=== PATIENT | male | born 1975 | race Caucasian/White ===

== ENCOUNTER 2024-01-22 08:29 | Emergency (ER) | payer BC, SELFPAY ==
[2024-01-22] VITALS (25 sets, daily range): BP systolic 114–140; BP diastolic 59–92; PULSE 65–91; RESP 16–18; TEMP 36.8; O2SAT 92–97; BMI 32.5
--- NOTE | 2024-01-22 09:02 | CRLHL7_ITS ---
For Patients: As a result of the Century Cures Act, medical imaging exams and procedure reports are released immediately into your electronic medical record. You may view this report before your referring provider. If you have questions, please contact your health care provider. Indication: Chest pain. Technique: One view(s) of the chest. Comparison: 07/31/2022. Findings: Normal cardiomediastinal silhouette and pulmonary vasculature. Lungs are well inflated and clear. No focal consolidation, pleural effusion or pneumothorax. No acute osseous abnormality. Impression: No acute cardiopulmonary abnormality identified. Dictated by Josy Loza MD @ 01/22/2024 9:28:58 AM (Electronically Signed)
[2024-01-22 09:05] LABS: Troponin, Point-of-Care* 0.01 ng/ml (0.01-0.04)
--- NOTE | 2024-01-22 09:06 | ED.GENADULT ---
HPI - General Adult General Chief complaint: Chest Pain Stated complaint: Chest pain/hypertension/cardiac history Time Seen by Provider: 01/22/24 08:38 History of Present Illness HPI narrative: Patient is a pleasant 48 year white male smoker who has had coronary artery disease, he has had 4 stents all at the same angiographic time in 2020. He subsequently had some type of chest pain issue and had an ME prior to his stents and what sounds like non STEMI after his stent. 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 He was going to work today and felt some left-sided finger tip point tenderness on his left chest wall. He came to the hospital. He did take a nitro and his symptoms resolved but he thinks a resolved almost irrespective of his nitroglycerin. He had no diaphoresis shortness of breath or nausea or vomiting. No recent illness, nose leg swelling or edema. No bleeding or clotting history. The patient has been taking baby aspirin and Plavix. Related Data Home Medications ?Medication ?Instructions ?Recorded ?Confirmed aspirin 81 mg tablet,delayed 81 mg PO DAILY 01/22/24 01/22/24 release (Adult Low Dose Aspirin) clopidogrel 75 mg tablet 75 mg PO DAILY 01/22/24 01/22/24 isosorbide mononitrate 30 mg 15 mg PO DAILY 01/22/24 01/22/24 tablet,extended release 24 hr lisinopril 5 mg tablet 5 mg PO DAILY 01/22/24 01/22/24 metoprolol succinate 25 mg 37.5 mg PO DAILY 01/22/24 01/22/24 tablet,extended release 24 hr nitroglycerin 0.4 mg sublingual mg sublingual 01/22/24 tablet rosuvastatin 40 mg tablet 40 mg PO DAILY 01/22/24 01/22/24 Allergies Allergy/AdvReac Type Severity Reaction Status Date / Time No Known Drug Allergies Allergy Verified 01/22/24 08:43 Review of Systems Status of ROS: Reports: 6 or more systems reviewed and unremarkable except as noted in History and below [facility] Social History Smoking Status: Current every day smoker What tobacco products do you use: cigarettes Smoking packs per day: 0.5 Smoking cigarettes per day: 10.0 Do you use any of these nicotine containing products: None Second hand tobacco smoke exposure: No How often do you have a drink containing alcohol: never AUDIT-C Alcohol total score: 0 Non-prescribed substance use: denies use service: No Exam Narrative: Exam Narrative: Objective: Patient's blood pressure is initially 127/92 retested 140/59 he is afebrile O2 sat 97% on room air In general is no apparent distress, he is asymptomatic at present HEENT is unremarkable neck is supple on nodes chest clear to auscultation Heart rhythm regular without murmur Abdomen benign soft nontender no masses no peritonitis Extremities are no edema neurologic nonfocal Skin periphery is warm and dry Const: Vital Signs, click to edit/add: Vital Signs - 24 hr 01/22/24 08:40 01/22/24 08:43 01/22/24 08:44 Temperature 98.2 F Pulse Rate 89 90 Pulse Rate [Pulse Oximeter] 90 Respiratory Rate 18 Blood Pressure 127/92 H Blood Pressure [Le ft Upper Arm] 127/92 H Pulse Oximetry 96 96 96 Oxygen Delivery Me thod Room Air 01/22/24 08:45 01/22/24 08:46 01/22/24 08:47 Temperature Pulse Rate 90 91 89 Pulse Rate [Pulse Oximeter] Respiratory Rate 16 Blood Pressure 140/59 H Blood Pressure [Le ft Upper Arm] Pulse Oximetry 96 97 97 Oxygen Delivery Me thod 01/22/24 09:00 01/22/24 09:01 01/22/24 09:02 Temperature Pulse Rate 91 89 89 Pulse Rate [Pulse Oximeter] Respiratory Rate 16 Blood Pressure 134/88 Blood Pressure [Le ft Upper Arm] Pulse Oximetry 97 96 95 Oxygen Delivery Me thod 01/22/24 09:13 01/22/24 09:15 01/22/24 09:30 Temperature Pulse Rate 86 86 Pulse Rate [Pulse Oximeter] Respiratory Rate Blood Pressure Blood Pressure [Le ft Upper Arm] Pulse Oximetry 95 95 93 Oxygen Delivery Me thod 01/22/24 09:31 01/22/24 09:45 01/22/24 10:00 Temperature Pulse Rate 87 91 75 Pulse Rate [Pulse Oximeter] Respiratory Rate Blood Pressure 118/79 Blood Pressure [Le ft Upper Arm] Pulse Oximetry 94 92 94 Oxygen Delivery Me thod 01/22/24 10:01 01/22/24 10:02 01/22/24 10:15 Temperature Pulse Rate 72 75 76 Pulse Rate [Pulse Oximeter] Respiratory Rate 16 Blood Pressure 114/80 Blood Pressure [Le ft Upper Arm] Pulse Oximetry 94 94 95 Oxygen Delivery Me thod 01/22/24 10:30 01/22/24 10:31 01/22/24 10:45 Temperature Pulse Rate 76 69 65 Pulse Rate [Pulse Oximeter] Respiratory Rate 16 Blood Pressure 115/80 Blood Pressure [Le ft Upper Arm] Pulse Oximetry 95 95 94 Oxygen Delivery Me thod 01/22/24 11:00 01/22/24 11:01 01/22/24 11:02 Temperature Pulse Rate 78 79 74 Pulse Rate [Pulse Oximeter] Respiratory Rate 16 Blood Pressure 125/62 Blood Pressure [Le ft Upper Arm] Pulse Oximetry 95 95 97 Oxygen Delivery Me thod 01/22/24 11:15 Temperature Pulse Rate 74 Pulse Rate [Pulse Oximeter] Respiratory Rate Blood Pressure Blood Pressure [Le ft Upper Arm] Pulse Oximetry 97 Oxygen Delivery Me thod Course Vital Signs Vital signs: Initial Vital Signs Temperature 98.2 F 01/22/24 08:40 Temperature Source Temporal Artery Scan 01/22/24 08:40 Pulse Rate 90 01/22/24 08:40 Respiratory Rate 18 01/22/24 08:40 Blood Pressure 127/92 H 01/22/24 08:40 Blood Pressure Mean 103 01/22/24 08:40 Blood Pressure Position Supine 01/22/24 08:40 Pulse Oximetry 96 01/22/24 08:40 Oxygen Delivery Method Room Air 01/22/24 08:40 Vital Signs Temperature 98.2 F 01/22/24 08:40 Pulse Rate 90 01/22/24 08:40 Respiratory Rate 18 01/22/24 08:40 Blood Pressure 127/92 H 01/22/24 08:40 Pulse Oximetry 96 01/22/24 08:40 Oxygen Delivery Method Room Air 01/22/24 08:40 Temperature 98.2 F 01/22/24 08:40 Pulse Rate 74 01/22/24 11:15 Respiratory Rate 16 01/22/24 11:01 Blood Pressure 125/62 01/22/24 11:01 Pulse Oximetry 97 01/22/24 11:15 Oxygen Delivery Method Room Air 01/22/24 08:40 Medications Administered Medications: Discontinued Medications Generic Name Dose Route Start Last Admin Trade Name Fadia PRN Reason Stop Dose Admin Aspirin 324 mg 01/22/24 09:02 01/22/24 09:08 Aspirin 81 Mg Tab.Chew PO 01/22/24 09:03 324 mg ONCE ONE Administration Sodium Chloride 500 mls @ 500 mls/hr 01/22/24 09:02 01/22/24 10:15 0.9 % Sodium Chloride 500 Ml IV 01/22/24 10:01 Infused .Q1H ONE Infusion Medical Decision Making [facility] Narrative Medical decision making narrative: [age] year white male with history of coronary disease status post 4 stents, with point tenderness over his left chest wall, he does have some tenderness to palpation in that area when I squeeze his left upper chest he does feel some discomfort consistent with what he has been feeling. At this point however she will be given aspirin, given his cardiac history will rule out acute coronary syndrome and will do serial EKGs serial troponins, will check lab studies and disposition pending findings. Will get a chest x-ray as well. Patient will be placed on EKG gambling monitor, and oximetry. Will give a small dose IV fluid. Disposition pending his clinical status and sequential test. Addendum 11:41 a.m.: The patient has a 2nd troponin that is negative, his 2nd EKG also looks completely normal. He has not had any symptoms. I think he should engage in light activity, stop smoking, sees regular doctor within the next day or 2 to determine if additional workup would be appropriate. He was comfortable with that and will follow up as directed. I do not have strong suspicion this is coronary artery disease given its finger tip area and tenderness to the left chest, so I think follow-up with primary care as appropriate. Lab Data Labs: Lab Results 01/22/24 01/22/24 01/22/24 Range/Units 09:02 09:07 11:00 WBC 15.29 H (4.50-11.00) K/uL RBC 5.22 (4.30-5.90) m/uL Hgb 15.8 (13.5-17.5) gm/dL Hct 47.7 (37.0-53.0) % MCV 91 (80-100) fL MCH 30 (26-34) pg MCHC 33 (32-36) gm/dL RDW Coeff of Aldo 12.9 (11.5-15.5) % Plt Count 224 (140-440) K/uL Neut % (Auto) 79.1 H (42.0-72.0) % Lymph % (Auto) 12.8 L (20-44) % [place] % (Auto) 5.6 (0.0-11.0) % Eos % (Auto) 1.2 (0.0-7.0) % Baso % (Auto) 0.3 (0.0-3.0) % Neut # (Auto) 12.10 H (1.7-7.0) K/uL Lymph # (Auto) 2.00 (0.90-2.90) K/uL [place] # (Auto) 0.90 (0.00-0.90) K/UL Eos # (Auto) 0.20 (0.00-0.50) K/uL Baso # (Auto) 0.00 (0.00-0.30) K/uL Abs Immat Gran (auto) 0.20 (0.00-0.30) K/uL Imm/Tot Granulo (auto) 1.0 % INR 0.93 (0.91-1.10) APTT 29 (23-33) Seconds Sodium 137 (135-149) mmol/L Potassium 4.4 (3.6-5.1) mmol/L Chloride 107 (96-114) mmol/L Carbon Dioxide 20 (20-32) mmol/L Anion Gap 10 (7-15) mEq/L BUN 17 (5-24) mg/dL Creatinine 0.9 (0.5-1.5) mg/dL Estimated Creat Clear 110.17 Estimated GFR 105 ml/min Glucose 162 H (60-115) mg/dL Calcium 8.7 (8.4-10.6) mg/dL Total Bilirubin 0.6 (0.1-1.5) mg/dL Direct Bilirubin 0.4 (0.0-0.5) mg/dL AST 23 (12-35) U/L ALT 31 (4-50) U/L Alkaline Phosphatase 80 (40-150) U/L C-Reactive Protein < 0.5 L (0.5-1.0) mg/dL NT-Pro-B Natriuret Pep 47 pg/mL Total Protein 7.3 (6.0-8.3) g/dL Albumin 4.7 (3.3-5.0) g/dL POC Troponin I 0.01 0.00 L (0.01-0.04) ng/ml Discharge Plan Discharge Clinical Impression: Chest pain, Coronary artery disease Patient Disposition: Home w/ Parent or Adult Condition: Improved Instructions: Chest Pain (DC) Additional Instructions: Recommend recheck with regular doctor in the next 2-3 days, continue present home medication, light activity recommended, return to ED as needed, Activity Level: Light activity Discharge Diet: Regular Prescriptions: No Action isosorbide mononitrate 30 mg tablet extended release 24 hr 15 mg PO DAILY clopidogrel 75 mg tablet 75 mg PO DAILY nitroglycerin 0.4 mg tablet, sublingual sublingual lisinopril 5 mg tablet 5 mg PO DAILY metoprolol succinate 25 mg tablet extended release 24 hr 37.5 mg PO DAILY rosuvastatin 40 mg tablet 40 mg PO DAILY aspirin [Adult Low Dose Aspirin] 81 mg tablet,delayed release (DR/EC) 81 mg PO DAILY Follow Up/Referrals: Provider,Not a Local [Primary Care Provider] - Stand Alone Forms: [id number] Info Instructions
[2024-01-22] MEDS: ASPIRIN 81 MG TAB.CHEW 324 MG PO (09:08)
[2024-01-22] MEDS: 0.9 % SODIUM CHLORIDE 500 ML 500 ML IV (09:13)
[2024-01-22 09:20] LABS: Basophils Percent Auto 0.3 % (0.0-3.0); Eosinophils Percent Auto 1.2 % (0.0-7.0); Hematocrit 47.7 % (37.0-53.0); Hemoglobin* 15.8 gm/dL (13.5-17.5); Lymphocytes Percent Auto 12.8 % (20-44); Mean Corpuscular HGB Conc 33 gm/dL (32-36); Mean Corpuscular Hemoglobin 30 pg (26-34); Mean Corpuscular Volume 91 fL (80-100); Monocytes Percent Auto 5.6 % (0.0-11.0); Neutrophils Percent Auto 79.1 % (42.0-72.0); Platelet Count* 224 K/uL (140-440); RDW Coefficient of Variation % 12.9 % (11.5-15.5); Red Blood Count 5.22 m/uL (4.30-5.90); White Blood Count* 15.29 K/uL (4.50-11.00)
[2024-01-22 09:23] LABS: Albumin* 4.7 g/dL (3.3-5.0); Chloride* 107 mmol/L (96-114)
[2024-01-22 09:24] LABS: Potassium* 4.4 mmol/L (3.6-5.1); Sodium* 137 mmol/L (135-149)
[2024-01-22 09:25] LABS: INR 0.93 (0.91-1.10)
[2024-01-22 09:26] LABS: Creatinine* 0.9 mg/dL (0.5-1.5); Est. Creatinine Clearance* 110.17; Estimated Glomerular Filt Rate 105 ml/min; Partial Thromboplastin Time* 29 Seconds (23-33); Slide Review Reflex No
[2024-01-22 09:27] LABS: Alanine Aminotransferase* 31 U/L (4-50); Alkaline Phosphatase* 80 U/L (40-150); Anion Gap 10 mEq/L (7-15); Aspartate Amino Transferase* 23 U/L (12-35); Bilirubin Direct* 0.4 mg/dL (0.0-0.5); Bilirubin Total* 0.6 mg/dL (0.1-1.5); Blood Urea Nitrogen* 17 mg/dL (5-24); Carbon Dioxide* 20 mmol/L (20-32); Glucose* 162 mg/dL (60-115); Total Protein* 7.3 g/dL (6.0-8.3)
[2024-01-22 09:28] LABS: Calcium* 8.7 mg/dL (8.4-10.6)
[2024-01-22 09:39] LABS: C Reactive Protein* < 0.5 mg/dL (0.5-1.0); NT Pro B Type NatriureticPept* 47 pg/mL
== END 2024-01-22 11:48 | disposition home or self-care (01) ==
PROVIDERS: Emergency Provider Family Medicine
DX: R07.9 Chest pain, unspecified (principal); I25.10 Atherosclerotic heart disease of native coronary artery without angina pectoris
CPT/HCPCS: 36415; 71045; 80048; 80076; 83880; 84484; 85025; 85610; 85730; 86140; 93005; 94761; 96360; 99284; 99285; A9270; J7030